=== PATIENT | female | born 1970 | race African-American/Black ===

== ENCOUNTER 2016-07-31 09:13 | Emergency (ER) | payer MEDICAID ==
[~2016-07-31] VITALS: Ht 162.6 cm; Wt 107.6 kg
[~2016-07-31 09:13] MED LIST: ALBUTEROL SULF8.5 GM INH; AMOXICILLIN500 MG ORAL; BENADRYL25 MG ORAL; CIPRO500 MG PO; CYCLOBENZAPRINE10 MG ORAL; HYDROCHLOROTH12.5 M2 ORAL; HYDROXYZINE HCL50 M1 PO; IBUPROFEN600 MG ORAL; KEFLEX500 MG ORAL; KENALOG 0.025%15 GM TP; METFORMIN HCL500 M1 ORAL; NORCO 5-325 TA1 EACH ORAL; PREDNISONE20 MG ORAL; PROMETHAZINE-D118 ML ORAL; RANITIDINE HCL150 MG ORAL; SYNTHROID125 MCG ORAL; TAMIFLU75 MG PO; ZOFRAN4 MG ORAL
[2016-07-31] MEDS ORDERED: HYDROmorphone 1mg/ml Carpuject IM ONE (10:15)
--- NOTE | 2016-07-31 10:16 | Emergency Room Report ---
History of Present Illness General Chief Complaint: Pain Source: Patient Present Illness HPI Patient presents to the emergency department with complaint of left leg pain. She has a long history of chronic leg pain in both legs. She is pending at a surgery on her right knee. She receives cortisone shots in both knees and in her hip sonication. She has a scheduled surgery on the of this month. She wears knee braces and supports as well as a uses a walker most days. She reports that she slipped on a wet surface yesterday where she twisted but did not fall and caught herself with the jerks, sudden motion with her left leg. She noted some discomfort at that time but states that over the last roughly 18 hours the pain has increased to the point where any movement of the leg pending of the ankle her knees causing her significant discomfort. She has pain with straight leg raise as well as movement of the hip. No history of lumbar radiculopathy in the past or back pain is reported today. No numbness, no tingling but primarily pain with motion. She tried to tramadol at home and this did not accomplish pain relief and she decided to come to the emergency department. Allergies: Coded Allergies: HYDROMORPHONE HCL (Verified Allergy, Intermediate, Rash, 07/29/12) Patient History Past Medical History: see triage record, old chart reviewed Social History: Denies: alcohol use, drug use, smoking Now: No Immunizations: UTD Reviewed Nursing Documentation: PMH: Agreed Nursing Documentation-PMH Hx Diabetes: Yes Hx Cancer: Yes - CERVICAL/HYSTERECTOMY Review of Systems Musculoskeletal: Reports: muscle pain, muscle stiffness, see HPI All Other Systems: negative except mentioned in HPI Physical Exam Vital Signs Date Time Temp Pulse Resp B/P Pulse Ox O2 Delivery O2 Flow Rate FiO2 07/31/16 09:51 98.6 75 14 125/76 100 Room Air Sp02 EP Interpretation: reviewed, normal General Appearance: well appearing, no apparent distress, alert, GCS 15 Head: atraumatic Eyes: bilateral eye normal inspection ENT: normal ENT inspection, hearing grossly normal, normal voice Neck: normal inspection, full range of motion, supple, no bony tend Respiratory: normal inspection, lungs clear, normal breath sounds, no respiratory distress, no retraction, no wheezing Cardiovascular #1: regular rate, rhythm, no edema Gastrointestinal: normal inspection, normal bowel sounds, non tender, soft, no guarding, no hernia Genitourinary: no CVA tenderness Musculoskeletal: normal range of motion, other - Patient is wearing bilateral knee supports with metal bracing. Good pulses in the left leg. At the foot. Pain with movement of the hip, rotation as well as attempted to lift the leg as well as pain with flexion of the foot, ankle. At this time pain does limit exam. Neurologic: alert, responsive, speech normal Psychiatric: normal inspection, judgement/insight normal, mood/affect normal Skin: normal inspection, normal color, no rash Medical Decision Making Diagnostic Impression: Primary Impression: Left leg pain Additional Impression: Pain of left knee and lower leg ER Course Patient is presenting with acute pain froma slip, almost near trip. I believe it is unlikely that she would have a fracture or any acute bony injury. I think that is likely she is suffering some muscle strain and sprain from the motion. We'll give the IM shot of pain medicine and Benadryl for any rash that may develop. The patient can be improved and her overall pain she should be safe for followup with her primary as well as her orthopedist, she has appointment on Monday. Do not see an indication for imaging, [place] I feel there is acute neurologic compromise or basilar compromise on exam. She has bracing as well as a walker for supportive measures. The patient's pain dramatically decreased, she is resting at this time. The mother leg elicits for a 10 pain which is feeling improved. Patient's family's by the bedside. Patient be discharged with family with followup with orthopedist and pain prescription written for. Strain of the left leg is my primary diagnosis. Reevaluation Time: 11:12 Last Vital Signs Date Time Temp Pulse Resp B/P Pulse Ox O2 Delivery O2 Flow Rate FiO2 07/31/16 09:51 98.6 75 14 125/76 100 Room Air Status: improved Disposition: HOME, SELF-CARE Condition: Improved Scripts Oxycodone/Acetaminophen 5-325* (PERCOCET 5-325 MG TABLET*) 1 Each Tablet 1 TAB ORAL Q6HR Y for For Pain, #15 TAB 0 Refills Prov: Allen Blankenship MD 07/31/16 Referrals: [facility] ([facility]P) Allen Blankenship MD Jul 31, 2016 10:16
[2016-07-31 11:00] VITALS: BP 125/76
[2016-07-31] MEDS ORDERED: PERCOCET 5-3251 EACH ORAL (11:11)
[2016-07-31 11:18] VITALS: BP 108/53
== END 2016-07-31 11:18 | disposition home or self-care (01) ==
LOC: EMR 10:08
DX: M79.605 Pain in left leg (principal); G89.29 Other chronic pain; E11.9 Type 2 diabetes mellitus without complications; Z85.41 Personal history of malignant neoplasm of cervix uteri; Z90.710 Acquired absence of both cervix and uterus; Z88.5 Allergy status to narcotic agent
CPT/HCPCS: 96372; 99283; J1170

== ENCOUNTER 2016-08-20 18:13 | Emergency (ER) | payer MEDICAID ==
[~2016-08-20] VITALS: Ht 162.6 cm; Wt 108.9 kg
[~2016-08-20 18:13] MED LIST changes: +PERCOCET 5-3251 EACH ORAL
--- NOTE | 2016-08-20 18:50 | Emergency Room Report ---
History of Present Illness General Chief Complaint: Flu Like Symptoms Source: Patient Present Illness HPI 45 YO with right ear pain, non productive cough, nasal congestion, hx of bronchitis. bilateral knee surgery, recently no CP.denies fevers, reports chills. denies rashes, abdominal pain, recent travel or ill contacts. Denies CP, Palpitations, LOC, AMS, dizziness, Changes in Vision, Sensation, paresthesias, or a sudden severe headache. Allergies: Coded Allergies: HYDROMORPHONE HCL (Verified Allergy, Intermediate, Rash, 07/29/12) Patient History Past Medical History: see triage record Past Surgical History: none Pertinent Family History: none Last Menstrual Period: 2006 Now: No Immunizations: UTD Reviewed Nursing Documentation: PMH: Agreed, PSxH: Agreed Nursing Documentation-PMH Hx Diabetes: Yes Hx Cancer: Yes - CERVICAL/HYSTERECTOMY Review of Systems All Other Systems: negative except mentioned in HPI Physical Exam Vital Signs Date Time Temp Pulse Resp B/P Pulse Ox O2 Delivery O2 Flow Rate FiO2 08/20/16 18:33 98.8 94 17 124/74 97 Room Air Sp02 EP Interpretation: reviewed, normal General Appearance: no apparent distress, alert, GCS 15, non-toxic Head: normocephalic, atraumatic Eyes: bilateral eye PERRL, bilateral eye normal inspection ENT: hearing grossly normal, normal pharynx, no angioedema, normal voice, uvula midline, moist mucus membranes, nasal congestion - non-purulent, other - Right Tm is erythematous and bulging. Neck: full range of motion, no meningismus, no bony tend, supple/symm/no masses Respiratory: chest non-tender, lungs clear, normal breath sounds, speaking full sentences Cardiovascular #1: regular rate, rhythm, no edema Rectal: deferred Musculoskeletal: back normal, gait/station normal, normal range of motion, non- tender, no calf tenderness Neurologic: alert, oriented x3, responsive, motor strength/tone normal, sensory intact, speech normal Psychiatric: judgement/insight normal, memory normal, mood/affect normal, no suicidal/homicidal ideation Skin: normal color, no rash, warm/dry, well hydrated Lymphatic: no adenopathy Medical Decision Making PA Attestation Dr. Apodaca is my supervising Physician whom patient management has been discussed with. Diagnostic Impression: Primary Impression: Otitis media Qualified Codes: H66.001 - Acute suppurative otitis media without spontaneous rupture of ear drum, right ear Additional Impression: Upper respiratory infection, acute ER Course Pt. presents to the ED c/o Dry cough, chills, nasal congestion and rhinorrhea with right ear pain x 2 day(s) Ddx considered but are not limited to OM, OE, mastoiditis, TM perforation, FB, URI, Vital signs: are WNL, pt. is afebrile H&PE are most consistent with otitis media ORDERS: none required at this time, the diagnosis is clinical ED INTERVENTIONS: None required at this time. DISCHARGE: At this time pt. is stable for d/c to home. With PO ABX. Will provide printed patient care instructions, and any necessary prescriptions. Care plan and follow up instructions have been discussed with the patient prior to discharge. Last Vital Signs Date Time Temp Pulse Resp B/P Pulse Ox O2 Delivery O2 Flow Rate FiO2 08/20/16 18:33 98.8 94 17 124/74 97 Room Air Disposition: HOME, SELF-CARE Condition: Stable Scripts Amoxicillin/Potassium Clav 875-125* (AUGMENTIN 875-125 TABLET*) 1 Each Tablet 1 TAB ORAL TWICE A DAY for 10 Days, #20 TAB Prov: Lucy Mejía 08/20/16 Acetaminophen* (TYLENOL EXTRA STRENGTH*) 500 Mg Tablet 500 MG ORAL Q6H, #30 TAB 0 Refills Prov: Lucy Mejía 08/20/16 D-Methorphan Hb/Prometh Hcl* (PROMETHAZINE-DM SYRUP*) 118 Ml Syrup 5 ML ORAL Q4H Y for For Cough, #240 ML 0 Refills Prov: Lucy Mejía 08/20/16 Patient Instructions: Otitis Media, Adult, Upper Respiratory Infection, Adult, [id number] Additional Instructions: Take medications as directed. Follow up with PCP in 3-5 days Return sooner to ED if new symptoms occur, or current symptoms become worse. Do not drink alcohol, drive, or operate heavy machinery while taking Cough Syrup as this may cause drowsiness. Lucy Mejía Aug 20, 2016 18:50
[2016-08-20] MEDS ORDERED: Acetaminophen 500mg (ES) tab ORAL ONE (19:15)
[2016-08-20] MEDS ORDERED: TYLENOL EXTRA500 MG ORAL (19:16)
[2016-08-20] MEDS ORDERED: PROMETHAZINE-D118 ML ORAL (19:16)
[2016-08-20] MEDS ORDERED: AUGMENTIN 875-1 EAC1 ORAL (19:16)
[2016-08-20 19:20] VITALS: BP 120/71
[2016-08-20 19:28] VITALS: BP 120/71
== END 2016-08-20 19:28 | disposition home or self-care (01) ==
LOC: EMR 18:53
DX: H66.001 Acute suppurative otitis media without spontaneous rupture of ear drum, right ear (principal); J06.9 Acute upper respiratory infection, unspecified; Z85.41 Personal history of malignant neoplasm of cervix uteri; Z90.710 Acquired absence of both cervix and uterus; E11.9 Type 2 diabetes mellitus without complications
CPT/HCPCS: 99284

== ENCOUNTER 2016-09-10 09:27 | Emergency (ER) | payer MEDICAID ==
[~2016-09-10] VITALS: Ht 162.6 cm; Wt 107.5 kg
[~2016-09-10 09:27] MED LIST changes: +AUGMENTIN 875-1 EAC1 ORAL; +TYLENOL EXTRA500 MG ORAL
[2016-09-10] MEDS ORDERED: ROBAXIN-750750 MG PO (09:48)
--- NOTE | 2016-09-10 09:53 | Emergency Room Report ---
History of Present Illness General Chief Complaint: Upper Extremity Injury Source: Patient, Medical Record Present Illness HPI Patient presents with complaints of right shoulder pain Reports that 2 days ago while trying to do stretches and reaching over her shoulder upward she felt a pain and popping sensation in the right shoulder Denies any chest pain Denies any back or flank pain Patient had previous bilateral knee surgeries and states that she has refill pain medications by her specialist Pain is worse with any movement of the right arm Denies any neuropathy at this time Patient states that she's had difficult time sleeping for the last 2 nights given the pain Allergies: Coded Allergies: HYDROMORPHONE HCL (Verified Allergy, Intermediate, Rash, 07/29/12) Patient History Past Medical History: see triage record Pertinent Family History: none Last Menstrual Period: 2006 : 5 Para: 3 Reviewed Nursing Documentation: PMH: Agreed, PSxH: Agreed Nursing Documentation-PMH Hx Diabetes: Yes Hx Cancer: Yes - CERVICAL/HYSTERECTOMY Review of Systems All Other Systems: negative except mentioned in HPI Physical Exam Vital Signs Date Time Temp Pulse Resp B/P Pulse Ox O2 Delivery O2 Flow Rate FiO2 09/10/16 09:28 98.8 94 16 135/86 99 Room Air Sp02 EP Interpretation: reviewed, normal General Appearance: no apparent distress Head: normocephalic, atraumatic Eyes: bilateral eye EOMI, bilateral eye PERRL ENT: normal pharynx Neck: supple Musculoskeletal: other - No obvious clinical deformity at the anterior shoulder , a.c. 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 Neurologic: alert, oriented x3, responsive Skin: normal color, no rash Lymphatic: no adenopathy Procedures Splinting Progress A shoulder sling was applied to the patient's This provides symptomatic improvement, but does immobilize the joint to the desired effect, and the patient remains neurovascularly intact Medical Decision Making Diagnostic Impression: Primary Impression: shoulder strain ER Course Given the clinical exam and the clinical description of the onset of pain I do not suspect any obvious fracture or dislocation There is likely ligamental/musculoskeletal, and possibly rotator cuff pathology involved Patient has followup with her orthopedic specialty At this time I do have concerns regarding the patient's requirement for multiple opiate prescriptions through the emergency department, and I discussed with her the"safe pain medicine prescribing" campaign in the requirement for close outpatient followup Last Vital Signs Date Time Temp Pulse Resp B/P Pulse Ox O2 Delivery O2 Flow Rate FiO2 09/10/16 09:28 98.8 94 16 135/86 99 Room Air Status: improved Disposition: HOME, SELF-CARE Condition: Stable Scripts Methocarbamol* (ROBAXIN-750*) 750 Mg Tablet 750 MG PO TID, #21 TAB 0 Refills Prov: MISHEL ARAMBULA D.O. 09/10/16 Patient Instructions: Shoulder Pain, Muscle Strain, [id number] Additional Instructions: The mechanism of the injury does not sound to be in line with likely acute fracture. Is likely have an injury to rotator cuff area, versus other ligamental, musculoskeletal areas. Unfortunately given the multiple narcotic prescription filled by different prescribers. And given the "safe pain medicine prescribing"can pain by the medical Society, we're unable to feel any further opiate medications. It is recommended 3 to followup with your specialist for continued pain control MISHEL ARAMBULA D.O. Sep 10, 2016 09:53
[2016-09-10] MEDS ORDERED: Methocarbamol 750mg tab ORAL ONE (10:00)
[2016-09-10] MEDS ORDERED: Ketorolac 60mg Inj IM ONE (10:00)
[2016-09-10 10:29] VITALS: BP 135/86
[2016-09-10 10:32] VITALS: BP 135/86
== END 2016-09-10 10:37 | disposition home or self-care (01) ==
LOC: EMR 10:03
DX: S46.911A Strain of unspecified muscle, fascia and tendon at shoulder and upper arm level, right arm, initial encounter (principal); X58.XXXA Exposure to other specified factors, initial encounter; Y93.9 Activity, unspecified; Y92.9 Unspecified place or not applicable; E11.9 Type 2 diabetes mellitus without complications; Z90.710 Acquired absence of both cervix and uterus
CPT/HCPCS: 29240; 96372; 99283

== ENCOUNTER 2017-02-17 20:44 | Emergency (ER) | payer MEDICAID ==
[~2017-02-17] VITALS: Ht 162.6 cm; Wt 115.2 kg
[~2017-02-17 20:44] MED LIST changes: +ROBAXIN-750750 MG PO
[2017-02-17] MEDS ORDERED: SYNTHROID150 MCG ORAL (21:05)
[2017-02-17] MEDS ORDERED: HYDROCHLOROTHIA25 MG ORAL (21:05)
[2017-02-17] MEDS ORDERED: ACETAMINOPHEN-1 EAC1 ORAL (21:08)
[2017-02-17] MEDS ORDERED: DICLOFENAC SODI75 MG ORAL (21:08)
[2017-02-17] MEDS ORDERED: TRAMADOL HCL50 MG ORAL (21:08)
--- NOTE | 2017-02-17 21:18 | Emergency Room Report ---
History of Present Illness General Chief Complaint: Lower Extremity Injury Source: Patient Present Illness HPI Is a 46-year-old female with a history diabetes. She presents with increasing pedal edema for last week. She is currently taking hydrochlorothiazide for. Swelling and any worse. She has bilateral knee braces on. 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 Pain is throbbing in nature. Worse with walking. No fever chills but no nausea vomiting. No shortness of breath. No chest pain. Allergies: Coded Allergies: HYDROMORPHONE HCL (Verified Allergy, Intermediate, Rash, 07/29/12) Patient History Past Medical History: see triage record, old chart reviewed, DM Past Surgical History: other Pertinent Family History: none Social History: Denies: smoking Last Menstrual Period: NO MORE PERIOD Now: No Immunizations: other Reviewed Nursing Documentation: PMH: Agreed, PSxH: Agreed Nursing Documentation-PMH Hx Diabetes: Yes Review of Systems Eye: Denies: blurred vision, eye pain ENT: Denies: ear pain, nose congestion, throat swelling Respiratory: Denies: cough, shortness of breath Cardiovascular: Denies: chest pain, palpitations Gastrointestinal: Denies: abdominal pain, diarrhea, nausea, vomiting Musculoskeletal: Denies: back pain, joint pain Skin: Denies: rash Neurological: Denies: headache, numbness Endocrine: Denies: increased thirst, increased urine Hematologic/Lymphatic: Denies: easy bruising All Other Systems: negative except mentioned in HPI Physical Exam Vital Signs Date Time Temp Pulse Resp B/P Pulse Ox O2 Delivery O2 Flow Rate FiO2 02/17/17 20:57 98.2 77 18 143/86 95 Room Air vitals normal Sp02 EP Interpretation: reviewed, normal General Appearance: well appearing, no apparent distress, alert Head: normocephalic, atraumatic Eyes: bilateral eye EOMI, bilateral eye PERRL ENT: hearing grossly normal, normal pharynx Neck: full range of motion, supple, no meningismus Respiratory: chest non-tender, lungs clear, normal breath sounds Cardiovascular #1: regular rate, rhythm, no murmur Gastrointestinal: normal bowel sounds, non tender, no mass, no organomegaly, no bruit, non-distended Musculoskeletal: back normal, normal range of motion, other - Trace edema Neurologic: alert, oriented x3 Psychiatric: mood/affect normal Skin: warm/dry Medical Decision Making Diagnostic Impression: Primary Impression: Pedal edema ER Course Patient presents with your edema. No evidence of CHF. No evidence of trauma. Unlikely to be DVT bilaterally. We'll discharge home. She diuresed well here. Last Vital Signs Date Time Temp Pulse Resp B/P Pulse Ox O2 Delivery O2 Flow Rate FiO2 02/17/17 20:57 98.2 77 18 143/86 95 Room Air Status: improved Disposition: HOME, SELF-CARE Condition: Stable Scripts Furosemide* (LASIX*) 20 Mg Tablet 20 MG ORAL DAILY, #7 TAB Prov: AILEEN PA M.D. 02/17/17 Referrals: [facility] (PCP) Additional Instructions: Stop your hydrochlorothiazide into you finish the Lasix. Followup your doctor in a week. Return if symptom worsen. AILEEN PA M.D. Feb 17, 2017 21:18
[2017-02-17] MEDS ORDERED: LASIX20 M1 ORAL (22:37)
[2017-02-17 22:40] VITALS: BP 151/91
== END 2017-02-17 22:40 | disposition home or self-care (01) ==
LOC: EMR 21:09
DX: R60.0 Localized edema (principal); E11.9 Type 2 diabetes mellitus without complications; Z88.8 Allergy status to other drugs, medicaments and biological substances
CPT/HCPCS: 36415; 83880; 96374; 99284; J1940

== ENCOUNTER 2017-07-10 09:39 | Emergency (ER) | payer MEDICAID ==
[~2017-07-10] VITALS: Ht 162.6 cm; Wt 104.3 kg
[~2017-07-10 09:39] MED LIST changes: +ACETAMINOPHEN-1 EAC1 ORAL; +DICLOFENAC SODI75 MG ORAL; +HYDROCHLOROTHIA25 MG ORAL; +LASIX20 M1 ORAL; +SYNTHROID150 MCG ORAL; +TRAMADOL HCL50 MG ORAL
[2017-07-10] MEDS ORDERED: Albuterol/Ipratropium 3ml neb HHN ONE (10:00)
--- NOTE | 2017-07-10 10:04 | Emergency Room Report ---
History of Present Illness General Chief Complaint: Upper Respiratory Illness Source: Patient Present Illness HPI Patient is a 46-year-old female presented after increased intermittently productive cough for one week patient gradual onset of symptoms. She had been noted to have increased difficulty breathing with supine position. She denies any recent fever. She states she was having fever all several days ago which had resolved. She reports having a moderate headache as well as a sore throat. The patient reported having multiple sick contacts. Allergies: Coded Allergies: HYDROMORPHONE HCL (Verified Allergy, Intermediate, Rash, 07/29/12) Patient History Last Menstrual Period: Post Reviewed Nursing Documentation: PMH: Agreed, PSxH: Agreed Nursing Documentation-PMH Hx Diabetes: Yes - No longer on medications. Review of Systems All Other Systems: negative except mentioned in HPI Physical Exam Vital Signs Date Time Temp Pulse Resp B/P (MAP) Pulse Ox O2 Delivery O2 Flow Rate FiO2 07/10/17 09:44 98.4 72 19 144/72 98 Room Air Sp02 EP Interpretation: reviewed, normal General Appearance: normal inspection, well appearing, no apparent distress, alert, GCS 15 Head: atraumatic ENT: normal ENT inspection, hearing grossly normal, normal voice Neck: normal inspection, full range of motion, supple, no bony tend Respiratory: normal inspection, lungs clear, normal breath sounds, no retraction, wheezing Cardiovascular #1: regular rate, rhythm, no edema Gastrointestinal: normal inspection, normal bowel sounds, non tender, soft, no guarding, no hernia Genitourinary: no CVA tenderness Musculoskeletal: normal inspection, back normal, normal range of motion Neurologic: normal inspection, alert, oriented x3, responsive, speech normal Psychiatric: normal inspection, judgement/insight normal, mood/affect normal Skin: normal inspection, normal color, no rash Medical Decision Making Diagnostic Impression: Primary Impression: Bronchitis ER Course Patient presented for cough. Differential diagnosis included but was not limited to bronchitis, pneumonia, pulmonary embolism, pericarditis, asthma, foreign body. The patient noted have some wheezing and was given breathing treatment. The patient presented with symptoms consistent with viral respiratory infection. She didn't appear to be in any respiratory distress. Last Vital Signs Date Time Temp Pulse Resp B/P (MAP) Pulse Ox O2 Delivery O2 Flow Rate FiO2 07/10/17 09:44 98.4 72 19 144/72 98 Room Air Status: improved Disposition: HOME, SELF-CARE Condition: Stable Referrals: [facility] ([facility]P) Randall Apodaca Jul 10, 2017 10:04
[2017-07-10] MEDS ORDERED: PREDNISONE20 MG ORAL (10:35)
[2017-07-10] MEDS ORDERED: ALBUTEROL SULF8.5 GM INH (10:39)
[2017-07-10 10:45] VITALS: BP 144/72
[2017-07-10 10:47] VITALS: BP 144/72
--- NOTE | 2017-07-10 11:06 | Diagnostic Imaging Report ---
Indication: Reason For Exam: SOB Technique: XRAY Chest 1v Comparison: 07/29/2012. Findings: The cardiomediastinal silhouette is normal. The lungs are clear. There is no evidence of pleural fluid. The bones are unremarkable. Impression: Normal chest.
== END 2017-07-10 10:48 | disposition home or self-care (01) ==
LOC: EMR 10:00
DX: J40 Bronchitis, not specified as acute or chronic (principal); E11.9 Type 2 diabetes mellitus without complications
CPT/HCPCS: 71010; 86710; 94640; 94664; 99283; J7512; J7620

== ENCOUNTER 2017-07-20 17:31 | Emergency (ER) | payer MEDICAID ==
[~2017-07-20] VITALS: Ht 162.6 cm; Wt 103.9 kg
[2017-07-20 18:05] VITALS: BP 130/74
[2017-07-20] MEDS: Ipratropium 0.02% Inh Soln 2.5ml UD HHN SCH (19:27)
[2017-07-20] MEDS: Albuterol ud Inhalation HHN SCH (19:27)
[2017-07-20] MEDS ORDERED: PROAIR HFA8.5 GM INH (20:02)
[2017-07-20] MEDS ORDERED: ADVAIR 250-501 EACH INH (20:02)
[2017-07-20] MEDS ORDERED: PREDNISONE20 MG ORAL (20:02)
[2017-07-20] MEDS ORDERED: PROMETHAZINE-D118 ML ORAL (20:02)
[2017-07-20 20:12] VITALS: BP 132/73
[2017-07-20 20:13] VITALS: BP 132/73
--- NOTE | 2017-07-20 20:55 | Emergency Room Report ---
History of Present Illness General Chief Complaint: General Complaint Source: Patient Present Illness [facility] The patient is a 46 old female with a history of asthma presenting for possible asthma exacerbation. She states that she has had increased wheezing and cough for the past 3 days. She has tried albuterol which temporarily helps. She denies any known sick contacts recent travel. She denies any fever. She denies any other symptoms Allergies: Coded Allergies: HYDROMORPHONE HCL (Verified Allergy, Intermediate, Rash, 07/29/12) Patient History Past Medical History: see triage record Pertinent Family History: none Last Menstrual Period: na Reviewed Nursing Documentation: PMH: Agreed, PSxH: Agreed Nursing Documentation-PMH Hx Diabetes: Yes - No longer on medications. Review of Systems All Other Systems: negative except mentioned in HPI Physical Exam Vital Signs Date Time Temp Pulse Resp B/P (MAP) Pulse Ox O2 Delivery O2 Flow Rate FiO2 07/20/17 17:45 98.4 59 18 130/74 99 Room Air Sp02 EP Interpretation: reviewed, normal General Appearance: no apparent distress, alert, GCS 15, non-toxic Head: normocephalic, atraumatic Eyes: bilateral eye normal inspection, bilateral eye PERRL ENT: hearing grossly normal, normal pharynx, no angioedema, normal voice Neck: full range of motion, supple/symm/no masses Respiratory: decreased breath sounds, speaking full sentences, wheezing - bilat Cardiovascular #1: regular rate, rhythm, no edema Musculoskeletal: back normal, gait/station normal, normal range of motion, non- tender Neurologic: alert, oriented x3, responsive, motor strength/tone normal, sensory intact, speech normal Psychiatric: judgement/insight normal, memory normal, mood/affect normal, no suicidal/homicidal ideation Skin: normal color, no rash, warm/dry, well hydrated Medical Decision Making PA Attestation Dr. Luz is my supervising physician. Patient management was discussed with my supervising physician Diagnostic Impression: Primary Impression: Asthma Qualified Codes: J45.901 - Unspecified asthma with (acute) exacerbation ER Course The patient is a 46 old female with a history of asthma presenting for possible asthma exacerbation Differential diagnoses considered but not limited to: Asthma exacerbation, bronchitis, pneumonia, anxiety Physical exam: Vitals within normal limits. No apparent distress HEENT exam is unremarkable Lungs: Decreased breath sounds bilaterally. Chest is nontender. No respiratory distress. No accessory muscle use. The patient was given a breathing treatment and is feeling much better. Lungs sounds have improved Patient is discharged home with a prescription for Cough medication, Advair, and oral steroids. She'll continue to use her albuterol and will followup with PMD. ER precautions are given Last Vital Signs Date Time Temp Pulse Resp B/P (MAP) Pulse Ox O2 Delivery O2 Flow Rate FiO2 07/20/17 20:13 98.4 83 18 132/73 99 Room Air Status: improved Disposition: HOME, SELF-CARE Condition: Improved Scripts D-Methorphan Hb/Prometh Hcl* (PROMETHAZINE-DM SYRUP*) 118 Ml Syrup 5 ML ORAL Q6H Y for For Cough, #118 ML 0 Refills Prov: TOSHIA PAYNE P.A. 07/20/17 Fluticasone/Salmeterol (Advair 250-50 Diskus) 1 Each Blst.w.dev 1 PUFF INH EVERY 12 HOURS, #1 EA Prov: TOSHIA PAYNE P.A. 07/20/17 Prednisone* (PREDNISONE*) 20 Mg Tablet 20 MG ORAL DAILY, #5 TAB 0 Refills Prov: TERZIANIDRISY P.A. 07/20/17 Albuterol Sulfate* (PROAIR HFA*) 8.5 Gm Hfa.aer.ad 2 PUFFS INH Q6H, #8.5 GM 0 Refills Prov: TERZIANIDRISY P.A. 07/20/17 Referrals: [facility] ([facility]P) Patient Instructions: Asthma, Adult Additional Instructions: I discussed my findings with the patient. All questions and concerns have been answered. Treatment and medication compliance have been addressed. I advised the patient that they need to follow up with PMD in 3-5 days. Return to ED if symptoms worsen, new symptoms arise, or if needed for any reason. Patient verbalized understanding of discharge instructions. TOSHIA PAYNE Jul 20, 2017 20:55
== END 2017-07-20 20:15 | disposition home or self-care (01) ==
LOC: EMR 20:00
DX: J45.909 Unspecified asthma, uncomplicated (principal); E11.9 Type 2 diabetes mellitus without complications; Z88.8 Allergy status to other drugs, medicaments and biological substances
CPT/HCPCS: 94644; 99284

== ENCOUNTER 2017-09-02 17:53 | Emergency (ER) | payer MEDICAID ==
[~2017-09-02] VITALS: Ht 162.6 cm; Wt 113.4 kg
[~2017-09-02 17:53] MED LIST changes: +ADVAIR 250-501 EACH INH; +PROAIR HFA8.5 GM INH
[2017-09-02 18:04] VITALS: BP 131/77
[2017-09-02] MEDS ORDERED: Ketorolac 30mg Inj IV ONE (18:30)
[2017-09-02] MEDS ORDERED: DiphenhydrAMINE 50mg/ml Inj IVP ONE (18:30)
--- NOTE | 2017-09-02 18:52 | Emergency Room Report ---
History of Present Illness General Chief Complaint: Headache Source: Patient, Medical Record Present Illness HPI 46-year-old female p/w WHITMAN for 7 days. Patient describes WHITMAN as gradual in onset, throbbing in nature, non-radiating, intermittent, + worse with light or sound Denies fever, chills, neck pain, blurry vision, motor/sensory weakness. Patient denies any history of DVT or PE. Denies any neurological signs or symptoms. States that she had gastric bypass few months ago. Allergies: Coded Allergies: HYDROMORPHONE HCL (Verified Allergy, Intermediate, Rash, 07/29/12) Patient History Past Medical History: see triage record Past Surgical History: none Pertinent Family History: none Reviewed Nursing Documentation: PMH: Agreed, PSxH: Agreed Nursing Documentation-PMH Hx Diabetes: Yes - No longer on medications. Review of Systems All Other Systems: negative except mentioned in HPI Physical Exam Vital Signs Date Time Temp Pulse Resp B/P (MAP) Pulse Ox O2 Delivery O2 Flow Rate FiO2 09/02/17 18:04 98.6 63 18 131/77 96 Room Air 98.6 Sp02 EP Interpretation: reviewed, normal General Appearance: normal inspection, well appearing, no apparent distress, alert, GCS 15, non-toxic Head: normocephalic, atraumatic Eyes: bilateral eye normal inspection, bilateral eye PERRL, bilateral eye EOMI ENT: normal ENT inspection, normal pharynx, normal voice, moist mucus membranes Neck: normal inspection, full range of motion, supple Respiratory: normal inspection, lungs clear, normal breath sounds, no respiratory distress, no retraction, no wheezing, speaking full sentences, chest symmetrical Cardiovascular #1: normal inspection, regular rate, rhythm, normal capillary refill Cardiovascular #2: 2+ radial (R), 2+ radial (L) Gastrointestinal: normal inspection, non tender, soft, non-distended, no guarding Musculoskeletal: normal inspection, back normal, normal range of motion, non- tender Neurologic: normal inspection, alert, oriented x3, responsive, 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 vs. dehydration Other serious diagnoses on differential such as intracranial bleed/sah, meningitis/encephalitis, tumor, however patients H&P is more consistent with benign etiology at this time. There are no neurological signs/symptoms/findings on physical exam and patient appears nontoxic. Plan: Pain control and IV fluids ER course: Patient feels much better with meds. Patient continues to appear nontoxic, aox3, no neurologic symptoms. Disposition: Patient will be discharged to home. Patient instructed to follow up with primary care doctor within 5 days. Patient also instructed to follow up with a neurologist within 1 week. Strict return precautions discussed with patient such as severe/worsening headache, nausea, vomiting, fever chills, neck pain. Patient verbalized understanding. Please note that this Emergency Department Report was dictated using [employer] searcher technology software, occasionally this can lead to erroneous entry secondary to interpretation by the dictation equipment. Last Vital Signs Date Time Temp Pulse Resp B/P (MAP) Pulse Ox O2 Delivery O2 Flow Rate FiO2 09/02/17 18:04 98.6 63 18 131/77 96 Room Air 98.6 Disposition: HOME, SELF-CARE Condition: Improved Patient Instructions: General Headache Without Cause Lyndon Luz M.D. Sep 02, 2017 18:52
[2017-09-02 19:38] VITALS: BP 132/80
[2017-09-02 19:40] VITALS: BP 132/80
== END 2017-09-02 19:38 | disposition home or self-care (01) ==
LOC: EMR 18:30
DX: R51 Headache (principal); E11.9 Type 2 diabetes mellitus without complications; Z88.6 Allergy status to analgesic agent
CPT/HCPCS: 81025; 96374; 96375; 99284; J1200; J1885; J2405

== ENCOUNTER 2018-01-20 08:16 | Emergency (ER) | payer MEDICAID ==
[~2018-01-20] VITALS: Ht 162.6 cm; Wt 82.6 kg
[2018-01-20] MEDS ORDERED: Isovue-300 100ml vial INJ PRN (08:45)
[2018-01-20 09:13] LABS: EOSINOPHILS % (AUTO) 1.8 % (0.0-3.0); HEMATOCRIT 41.9 % (37.0-47.0); HEMOGLOBIN 13.6 G/DL (12.0-16.0); LYMPHOCYTES % (AUTO) 36.8 % (20.0-45.0); MEAN CORPUSCULAR VOLUME 88 FL (80-99); MONOCYTES % (AUTO) 7.2 % (1.0-10.0); NEUTROPHILS % (AUTO) 52.2 % (45.0-75.0); PLATELET COUNT 255 K/UL (150-450); RED BLOOD COUNT 4.75 M/UL (4.20-5.40); RED CELL DISTRIBUTION WIDTH 12.2 % (11.6-14.8); WHITE BLOOD COUNT 6.5 K/UL (4.8-10.8)
[2018-01-20 09:14] VITALS: BP 118/72
[2018-01-20 09:16] LABS: ANION GAP 5 mmol/L (5-15); BLOOD UREA NITROGEN 10 mg/dL (7-18); CALCIUM 8.7 MG/DL (8.5-10.1); CARBON DIOXIDE 30 MMOL/L (21-32); CHLORIDE 105 MMOL/L (98-107); CREATININE 0.8 MG/DL (0.55-1.30); POTASSIUM 4.2 MMOL/L (3.5-5.1); SODIUM 139 MMOL/L (136-145)
[2018-01-20 09:26] LABS: ALANINE AMINOTRANSFERASE 16 U/L (12-78); ALBUMIN 3.8 G/DL (3.4-5.0); ALKALINE PHOSPHATASE 74 U/L (46-116); ASPARTATE AMINO TRANSFERASE 11 U/L (15-37); BILIRUBIN,TOTAL 1.2 MG/DL (0.2-1.0)
[2018-01-20 09:28] LABS: APPEARANCE,URINE SLIGHTLY CLOUDY; BILIRUBIN, URINE NEGATIVE (NEGATIVE); GLUCOSE, URINE (UA) NEGATIVE (NEGATIVE); KETONES,URINE NEGATIVE (NEGATIVE); LEUKOCYTE ESTERASE ,URINE 1+ (NEGATIVE); NITRITE,URINE NEGATIVE (NEGATIVE); PH,URINE 6 (4.5-8.0); PROTEIN,URINE 1+ (NEGATIVE); UROBILINOGEN,URINE 4 MG/DL (0.0-1.0)
[2018-01-20 09:29] LABS: BILIRUBIN,DIRECT 0.3 MG/DL (0.0-0.3)
[2018-01-20 09:31] LABS: COLOR,URINE YELLOW
--- NOTE | 2018-01-20 10:09 | Emergency Room Report ---
History of Present Illness General Chief Complaint: Abdominal Pain Source: Patient Present Illness HPI 47-year-old female resents ED complaining of abdominal pain. Started 2 days ago. Notes pain to the right lower quadrant, 6 out of 10, dull, nonradiating. Denies fevers or chills. Denies nausea or vomiting. Denies chest pain or shortness of breath. No other aggravating relieving factors. Denies any other associated symptoms Allergies: Coded Allergies: HYDROMORPHONE HCL (Verified Allergy, Intermediate, Rash, 07/29/12) Patient History Past Medical History: DM Past Surgical History: none Pertinent Family History: none Social History: Denies: smoking, alcohol use, drug use Last Menstrual Period: 2006 Now: No Immunizations: UTD Reviewed Nursing Documentation: PMH: Agreed; PSxH: Agreed Nursing Documentation-PMH Past Medical History: No History, Except For Hx Diabetes: Yes - No longer on medications. Review of Systems All Other Systems: negative except mentioned in HPI Physical Exam Vital Signs Date Time Temp Pulse Resp B/P (MAP) Pulse Ox O2 Delivery O2 Flow Rate FiO2 01/20/18 08:18 98.9 65 16 125/78 98 Room Air 99.0 Sp02 EP Interpretation: reviewed, normal General Appearance: no apparent distress, alert, GCS 15, non-toxic Head: normocephalic, atraumatic Eyes: bilateral eye normal inspection, bilateral eye PERRL ENT: hearing grossly normal, normal pharynx, no angioedema, normal voice Neck: full range of motion, supple/symm/no masses Respiratory: chest non-tender, lungs clear, normal breath sounds, speaking full sentences Cardiovascular #1: regular rate, rhythm, no edema Cardiovascular #2: 2+ carotid (R), 2+ carotid (L), 2+ radial (R), 2+ radial (L) , 2+ dorsalis pedis (R), 2+ dorsalis pedis (L) Gastrointestinal: normal bowel sounds, soft, non-distended, no guarding, no rebound, tenderness - RLQ Rectal: deferred Genitourinary: normal inspection, no CVA tenderness Musculoskeletal: back normal, gait/station normal, normal range of motion, non- tender Neurologic: alert, oriented x3, responsive, motor strength/tone normal, sensory intact, speech normal Psychiatric: judgement/insight normal, memory normal, mood/affect normal, no suicidal/homicidal ideation Reflexes: 3+ bicep (R), 3+ bicep (L), 3+ tricep (R), 3+ tricep (L), 3+ knee (R) , 3+ knee (L) Skin: normal color, no rash, warm/dry, well hydrated Lymphatic: no adenopathy Medical Decision Making Diagnostic Impression: Primary Impression: Ovarian cyst Qualified Codes: N83.201 - Unspecified ovarian cyst, right side; N83.202 - Unspecified ovarian cyst, left side ER Course Hospital Course 47-year-old F presents to ED with lower abdominal pain Differential diagnosis includes- cystitis, UTI, constipation, ovarian cyst/ torsion Clinical course Patient placed on stretcher. After initial history and physical I ordered labs , IV fluids, CT Labs - no leukocytosis, electrolytes ok, LFTs normal, UA unremarkable CT A/P - no evidence of appendicits. ? enlarged ovariies Pelvic US - bilateral ovarian cyst, R >> L, + free fluid. good flow to ovary noted discussed findings with the patient. Patient is aware of history of ovarian cyst. Had history of ovarian torsion long time ago. Safe for discharge. 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 I feel this is a highly complex case requiring extensive working including EKG/ Rhythm strip, Xray/CT/US, Blood/urine lab work, repeat exams while in ED, and administration of strong opiates/narcotics for pain control, admission to hospital or close patient follow up. Diagnosis - ovarian cyst Stable and discharged to home with Rx Motrin, Tylenol #3. Followup with PMD/ OBGYN. Return to ED if symptoms recur or worsen Labs Test 01/20/18 08:18 White Blood Count 6.5 K/UL (4.8-10.8) Red Blood Count 4.75 M/UL (4.20-5.40) Hemoglobin 13.6 G/DL (12.0-16.0) Hematocrit 41.9 % (37.0-47.0) Mean Corpuscular Volume 88 FL (80-99) Mean Corpuscular Hemoglobin 28.6 PG (27.0-31.0) Mean Corpuscular Hemoglobin Concent 32.4 G/DL (32.0-36.0) Red Cell Distribution Width 12.2 % (11.6-14.8) Platelet Count 255 K/UL (150-450) Mean Platelet Volume 7.6 FL (6.5-10.1) Neutrophils (%) (Auto) 52.2 % (45.0-75.0) Lymphocytes (%) (Auto) 36.8 % (20.0-45.0) Monocytes (%) (Auto) 7.2 % (1.0-10.0) Eosinophils (%) (Auto) 1.8 % (0.0-3.0) Basophils (%) (Auto) 2.0 % (0.0-2.0) Urine Color Yellow Urine Appearance Slightly cloudy Urine pH 6 (4.5-8.0) Urine Specific [place] 1.020 (1.005-1.035) Urine Protein 1+ (NEGATIVE) Urine Glucose (UA) Negative (NEGATIVE) Urine Ketones Negative (NEGATIVE) Urine Occult Blood 2+ (NEGATIVE) Urine Nitrite Negative (NEGATIVE) Urine Bilirubin Negative (NEGATIVE) Urine Urobilinogen 4 MG/DL (0.0-1.0) Urine Leukocyte Esterase 1+ (NEGATIVE) Urine RBC 2-4 /HPF (0 - 2) Urine WBC 2-4 /HPF (0 - 2) Urine Squamous Epithelial Cells Many /LPF (NONE/OCC) Urine Bacteria Few /HPF (NONE) Urine Mucus Moderate /LPF (NONE/OCC) Urine HCG, Qualitative Negative (NEGATIVE) Sodium Level 139 MMOL/L (136-145) Potassium Level 4.2 MMOL/L (3.5-5.1) Chloride Level 105 MMOL/L (98-107) Carbon Dioxide Level 30 MMOL/L (21-32) Anion Gap 5 mmol/L (5-15) Blood Urea Nitrogen 10 mg/dL (7-18) Creatinine 0.8 MG/DL (0.55-1.30) Estimat Glomerular Filtration Rate > 60 mL/min (>60) Glucose Level 91 MG/DL (74-106) Calcium Level 8.7 MG/DL (8.5-10.1) Total Bilirubin 1.2 MG/DL (0.2-1.0) Direct Bilirubin 0.3 MG/DL (0.0-0.3) Aspartate Amino Transf (AST/SGOT) 11 U/L (15-37) Alanine Aminotransferase (ALT/SGPT) 16 U/L (12-78) Alkaline Phosphatase 74 U/L (46-116) Total Protein 7.5 G/DL (6.4-8.2) Albumin 3.8 G/DL (3.4-5.0) Globulin 3.7 g/dL Albumin/Globulin Ratio 1.0 (1.0-2.7) Lipase 208 U/L (73-393) CT/MRI/US Diagnostic Results CT/MRI/US Diagnostic Results #1: Imaging Test Ordered: CT A/P Impression no evidence of appendicitis. enlarged ovaries. CT/MRI/US Diagnostic Results #2: Imaging Test Ordered: Pelvic US Impression bilateral ovarian cysts, R >> L. good flow. no free fluid Last Vital Signs Date Time Temp Pulse Resp B/P (MAP) Pulse Ox O2 Delivery O2 Flow Rate FiO2 01/20/18 09:14 66 17 118/72 95 Room Air 01/20/18 08:18 98.9 99.0 Status: improved Disposition: HOME, SELF-CARE Condition: Stable Scripts Acetaminophen With Codeine (T#3) (TYLENOL #3 TAB*) Y Tab 1 TAB ORAL Q8H PRN for For Pain, #20 TAB Prov: Nitin Sherwood MD 01/20/18 Ibuprofen* (MOTRIN*) 600 Mg Tablet 600 MG ORAL Q8H PRN for For Pain, #30 TAB 0 Refills Prov: Nitin Sherwood MD 01/20/18 Nitin Sherwood MD Jan 20, 2018 10:09
--- NOTE | 2018-01-20 10:53 | Diagnostic Imaging Report ---
EXAM: CT Abdomen and Pelvis With Intravenous Contrast CLINICAL HISTORY: ABD PAIN TECHNIQUE: Axial computed tomography images of the abdomen and pelvis with intravenous contrast. One or more of the following dose reduction techniques were used: automated exposure control, adjustment of the mA and/or kV according to patient size, use of iterative reconstruction technique. CT DI 16.82 DLP 910 COMPARISON: No relevant prior studies available. FINDINGS: Lung bases: Minimal atelectasis. ABDOMEN: Liver: Unremarkable. No mass. Gallbladder and bile ducts: There is cholelithiasis. Suspect pericholecystic fluid in the gallbladder fossa. Ultrasound could further assess. Pancreas: Unremarkable. No mass. No ductal dilation. Spleen: Unremarkable. No splenomegaly. Adrenals: Unremarkable. No mass. Kidneys and ureters: Nonobstructing lower pole right renal calculi. 1. 7 cm lower pole right renal cyst. 1.3 cm lower pole left renal hypodensity too small characterize. Nonemergent ultrasound could further assess as central enhancing/solid components are not completely excluded. Stomach and bowel: Colonic diverticula without diverticulitis. Status post gastric bypass. No bowel obstruction or perforation. Unremarkable appendix. PELVIS: Appendix: No findings to suggest acute appendicitis. Bladder: Unremarkable. No mass. Reproductive: Hysterectomy. Bilateral adnexal cysts, largest on the right measuring up to 5.9 cm. On the left, the largest cyst is 4 cm.. ABDOMEN and PELVIS: Intraperitoneal space: Unremarkable. No free air. No significant fluid collection. Bones/joints: No acute fracture. No dislocation. Soft tissues: Unremarkable. Vasculature: Unremarkable. No abdominal aortic aneurysm. Lymph nodes: Unremarkable. No enlarged lymph nodes. IMPRESSION: Cholelithiasis with presumed pericholecystic fluid. Ultrasound could further assess. Ultrasound is also advised to assess a 1.3 cm lower pole left renal hypodensity, but this could be pursued on a nonemergent basis. Nonobstructing lower pole right renal calculi. Hysterectomy. Bilateral adnexal cysts, largest on the right measuring 5. 9 cm. Gastric bypass. No SBO. Colonic diverticula without diverticulitis.
[2018-01-20 11:34] VITALS: BP 122/77
[2018-01-20] MEDS ORDERED: ACETAMINOPHEN-1 EAC1 ORAL (12:36)
[2018-01-20] MEDS ORDERED: IBUPROFEN600 MG ORAL (12:36)
[2018-01-20 12:46] VITALS: BP 122/77
--- NOTE | 2018-01-20 13:05 | Diagnostic Imaging Report ---
EXAM: US Pelvis Complete, Transabdominal CLINICAL HISTORY: PAIN TECHNIQUE: Real-time transabdominal pelvic ultrasound (complete) with image documentation. COMPARISON: CT abdomen and pelvis of same date. FINDINGS: Uterus/cervix: Status post hysterectomy Right ovary: Expanded to 7.7 x 5.9 x 4.6 cm. Multiple cystic masses. Largest measures 5.4 cm and is fairly simple. There is also a more complex, likely hemorrhagic cyst measuring 4.2 cm. No sonographic findings of torsion. Left ovary: Expanded to 5.8 x 4.2 x 3.4 cm. Multiple cystic masses, largest measuring up to 3.3 cm with some complexity. No sonographic findings of torsion. Free fluid: No free fluid. IMPRESSION: Bilateral ovarian cysts, largest on the right measuring 5.4 cm and on the left measuring 3.3 cm. No sonographic findings of torsion. Would recommend six-week sonographic follow-up. Hysterectomy.
== END 2018-01-20 12:47 | disposition home or self-care (01) ==
LOC: EMR 08:40
DX: N83.201 Unspecified ovarian cyst, right side (principal); N83.202 Unspecified ovarian cyst, left side; E11.9 Type 2 diabetes mellitus without complications; Z88.8 Allergy status to other drugs, medicaments and biological substances; K80.20 Calculus of gallbladder without cholecystitis without obstruction; N20.0 Calculus of kidney; Z90.710 Acquired absence of both cervix and uterus; Z98.84 Bariatric surgery status; K57.90 Diverticulosis of intestine, part unspecified, without perforation or abscess without bleeding
CPT/HCPCS: 36415; 74177; 76830; 76856; 80053; 81003; 81025; 82248; 83690; 85025; 96360; 99284; Q9967

== ENCOUNTER 2018-03-15 08:42 | Emergency (ER) | payer MEDICAID ==
[~2018-03-15] VITALS: Ht 154.9 cm; Wt 78.5 kg
[2018-03-15 09:00] VITALS: BP 129/90
[2018-03-15] MEDS ORDERED: TESSALON PERLE100 MG ORAL (09:55)
--- NOTE | 2018-03-15 09:55 | Emergency Room Report ---
History of Present Illness General Chief Complaint: Flu Like Symptoms Source: Patient Present Illness HPI Two days nonproductive cough, nasal congestion, sore throat, mild malaise, no fever, no cp, no sob. No leg pain/swelling/travel/sedentary. PMH: hypothyroidism, RA Synthroid, Meloxicam 7.5 Allergies: Coded Allergies: HYDROMORPHONE HCL (Verified Allergy, Intermediate, Rash, 07/29/12) Patient History Last Menstrual Period: 2006 Nursing Documentation-PMH Past Medical History: No History, Except For Hx Diabetes: Yes - No longer on medications. Review of Systems Constitutional: Reports: no symptoms, see HPI Eye: Reports: no symptoms, nose congestion ENT: Reports: no symptoms, see HPI, nose congestion, throat pain Respiratory: Reports: no symptoms Cardiovascular: Reports: no symptoms Gastrointestinal: Reports: no symptoms Genitourinary: Reports: no symptoms Musculoskeletal: Reports: no symptoms Skin: Reports: no symptoms Psychiatric: Reports: no symptoms Neurological: Reports: no symptoms Endocrine: Reports: no symptoms Hematologic/Lymphatic: Reports: no symptoms Allergic: Reports: no symptoms All Other Systems: negative except mentioned in HPI Physical Exam Vital Signs Date Time Temp Pulse Resp B/P (MAP) Pulse Ox O2 Delivery O2 Flow Rate FiO2 03/15/18 08:49 98.4 62 16 129/90 97 Room Air 98.4 Sp02 EP Interpretation: reviewed, normal General Appearance: normal inspection, well appearing, no apparent distress, alert, GCS 15, non-toxic Head: normocephalic, atraumatic Eyes: bilateral eye normal inspection, bilateral eye PERRL, bilateral eye EOMI ENT: hearing grossly normal, normal pharynx, no angioedema, normal voice, moist mucus membranes, other - nasal congestion Neck: normal inspection, full range of motion, supple, no meningismus, no bony tend Respiratory: normal inspection, lungs clear, normal breath sounds, no rhonchi, no respiratory distress, no retraction, no accessory muscle use, no wheezing Cardiovascular #1: normal inspection, regular rate, rhythm, no edema Gastrointestinal: normal inspection, normal bowel sounds, non tender, soft, no mass, non-distended Musculoskeletal: gait/station normal, normal range of motion Neurologic: normal inspection, alert, oriented x3, responsive, motor strength/ tone normal Psychiatric: normal inspection, judgement/insight normal, memory normal Suicide Risk Assessment: Suicidal Ideation: No Had intent to initiate attempt: No Pt's plan for suicide attempt: No Has means to complete attempt: No Skin: normal inspection, normal color, no rash, warm/dry Medical Decision Making Diagnostic Impression: Primary Impression: Viral URI ER Course comfortable, mild viral illness pulse ox 100% on RA; normal Chest X-Ray Diagnostic Results Chest X-Ray Diagnostic Results : Chest X-Ray Ordered: Yes # of Views/Limited/Complete: 1 View Indication: Shortness of Breath EP Interpretation: Yes Interpretation: no consolidation, no effusion, no pneumothorax, no acute cardiopulmonary disease Last Vital Signs Date Time Temp Pulse Resp B/P (MAP) Pulse Ox O2 Delivery O2 Flow Rate FiO2 03/15/18 09:00 Room Air 03/15/18 09:00 98.4 62 16 129/90 97 98.4 Disposition: HOME, SELF-CARE Condition: Stable Scripts Benzonatate* (TESSALON PERLE*) 100 Mg Capsule 200 MG ORAL THREE TIMES A DAY, #30 PERLE Prov: Ortiz Tejeda M.D. 03/15/18 Referrals: [facility] (PCP) Patient Instructions: Upper Respiratory Infection, Adult, [id number] Ortiz Tejeda M.D. Mar 15, 2018 09:55
[2018-03-15 10:01] VITALS: BP 129/90
--- NOTE | 2018-03-15 11:00 | Diagnostic Imaging Report ---
Indication: Cough Technique: One view of the chest Comparison: 07/10/2017 Findings: Lungs and pleural spaces are clear. Heart size is normal. No significant interim change Impression: No acute process
== END 2018-03-15 10:02 | disposition home or self-care (01) ==
LOC: EMR 09:18
DX: J06.9 Acute upper respiratory infection, unspecified (principal)
CPT/HCPCS: 71045; 99283

== ENCOUNTER 2018-04-10 08:24 | Emergency (ER) | payer MEDICAID ==
[~2018-04-10] VITALS: Ht 162.6 cm; Wt 78.5 kg
[~2018-04-10 08:24] MED LIST changes: +TESSALON PERLE100 MG ORAL
[2018-04-10 08:45] VITALS: BP 126/82
[2018-04-10] MEDS ORDERED: IBUPROFEN600 MG ORAL (08:49)
[2018-04-10] MEDS ORDERED: NORCO 5-325 TA1 EACH ORAL (08:49)
[2018-04-10] MEDS ORDERED: ROBAXIN-750750 MG PO (08:49)
[2018-04-10] MEDS ORDERED: LIDODERM700 M1 TOPIC (08:49)
[2018-04-10] MEDS ORDERED: Norco 5mg/325mg tab ORAL ONE (09:00)
[2018-04-10] MEDS ORDERED: Methocarbamol 750mg tab ORAL ONE (09:00)
--- NOTE | 2018-04-10 09:42 | Emergency Room Report ---
History of Present Illness General Chief Complaint: Back Pain-No Injury Source: Patient Present Illness HPI 47-year-old female presents ED for evaluation of back pain. Pain started approximately one week ago but is getting progressively worse. Throbbing, 8 out of 10, localized upper back, nonradiating. Worse with bending and twisting. Patient states she works at [employer] and often has to lift heavy objects. Has had prior episodes of back pain in the past. Denies chest pain or shortness of breath. No other aggravating relieving factors. Denies any other associated symptoms Allergies: Coded Allergies: HYDROMORPHONE HCL (Verified Allergy, Intermediate, Rash, 07/29/12) Patient History Past Medical History: DM Past Surgical History: none Pertinent Family History: none Social History: Denies: smoking, alcohol use, drug use Last Menstrual Period: 2006 Now: No Immunizations: UTD Reviewed Nursing Documentation: PMH: Agreed; PSxH: Agreed Nursing Documentation-PMH Hx Diabetes: Yes - No longer on medications. Review of Systems All Other Systems: negative except mentioned in HPI Physical Exam Vital Signs Date Time Temp Pulse Resp B/P (MAP) Pulse Ox O2 Delivery O2 Flow Rate FiO2 04/10/18 08:27 98.3 60 18 126/82 99 Room Air 98.2 Sp02 EP Interpretation: reviewed, normal General Appearance: no apparent distress, alert, GCS 15, non-toxic Head: normocephalic Eyes: bilateral eye normal inspection, bilateral eye PERRL ENT: normal ENT inspection Neck: normal inspection Respiratory: chest non-tender, lungs clear, normal breath sounds, speaking full sentences Cardiovascular #1: regular rate, rhythm, no edema Gastrointestinal: normal inspection Rectal: deferred Genitourinary: no CVA tenderness, no vertebral tenderness Musculoskeletal: tender - parapsinal thoracic tenderness Neurologic: alert, oriented x3, responsive, motor strength/tone normal, sensory intact, speech normal Skin: normal inspection Lymphatic: normal inspection Medical Decision Making Diagnostic Impression: Primary Impression: Back pain Qualified Codes: M54.6 - Pain in thoracic spine ER Course Hospital Course 47-year-old female presents ED complaining of upper back pain. No evidence of trauma Differential diagnoses include: pyelonephritis, kidney stone, muscle strain, Tspine fracture Clinical course Patient placed on stretcher. After initial history, physical exam reveals a middle-aged female in no acute distress. On exam there is appreciable tenderness to the paraspinal regions in the thoracic area just underneath the shoulder blades bilaterally. No neck pain. No T-spine tenderness. Pain is muscular. Discussed findings with patient. Patient given here Motrin, [place], Robaxin and Lidoderm patch with symptoms improving. Patient be discharged on similar medications. Close follow-up with PMD Diagnosis - back pain Stable and discharged to home with prescription for motrin, robaxin, norco, lidoderm. Followup with PMD. Return to ED if symptoms recur or worsen Last Vital Signs Date Time Temp Pulse Resp B/P (MAP) Pulse Ox O2 Delivery O2 Flow Rate FiO2 04/10/18 09:03 98.3 04/10/18 08:27 60 18 126/82 99 Room Air Status: improved Disposition: HOME, SELF-CARE Condition: Stable Scripts Lidocaine (Lidoderm) 1 Each Adh..patch 2 PATCH TOPIC DAILY, #10 PATCH 0 Refills Patch(es) may remain in place for up to 12 hours in any 24-hour period. Prov: Nitin Sherwood MD 04/10/18 Methocarbamol* (ROBAXIN-750*) 750 Mg Tablet 750 MG PO TID, #21 TAB 0 Refills Prov: Nitin Sherwood MD 04/10/18 Hydrocodone Bit/Acetaminophen 5-325* (NORCO 5-325*) 1 Each Tablet 1 TAB ORAL Q6H PRN for For Pain, #10 TAB 0 Refills Prov: Nitin Sherwood MD 04/10/18 Ibuprofen* (MOTRIN*) 600 Mg Tablet 600 MG ORAL Q8H PRN for For Pain, #30 TAB 0 Refills Prov: Nitin Sherwood MD 04/10/18 Referrals: [facility]ERR[facility] (PCP) Patient Instructions: Back Pain, Adult Nitin Sherwood MD Apr 10, 2018 09:42
== END 2018-04-10 08:45 | disposition home or self-care (01) ==
LOC: EMR 08:42
DX: M54.6 Pain in thoracic spine (principal); Z88.5 Allergy status to narcotic agent
CPT/HCPCS: 99283